=== PATIENT | male | born 1940 | race American Indian/Alaskan Native ===

== ENCOUNTER 2016-07-12 09:56 | Outpatient (CLI) | payer MEDICARE ==
[2016-07-12 10:55] LABS: Blood Urea Nitrogen 11 mg/dL (9-20)
--- NOTE | 2016-07-13 08:33 | Magnetic Resonance Report ---
MR PELVIS WITH AND WITHOUT CONTRAST HISTORY: Prostate cancer TECHNIQUE: Multisequence, multiplanar MRI before and after 12 cc of Multihance. COMPARISON: CT abdomen pelvis with contrast dated 01/02/13. FINDINGS: The prostate gland is borderline to mildly enlarged measuring 5.2 x 4.5 x 4.9 cm. The prostate gland is heterogeneous but no discrete enhancing nodule is demonstrated on the postcontrast images. The prostate gland makes a prominent indentation on the base of the bladder but no obvious bladder invasion. The bladder is within normal limits. There may be minimal trabeculation of the bladder wall. The urethra is unremarkable. The visualized bowel loops in the pelvis are within normal limits. No evidence for pelvic fluid, inflammation or adenopathy. Moderate degenerative changes are noted in the lower lumbar spine. No suspicious bony lesion is appreciated. IMPRESSION: Mildly enlarged and heterogeneous prostate gland without evidence of metastatic disease. Degenerative changes in the lower lumbar spine.
== END 2016-07-12 09:57 | disposition home or self-care (01) ==
LOC: MRI 09:56
PROVIDERS: ATTEND Radiology Radiation Oncology
DX: C61 Malignant neoplasm of prostate (principal); N40.0 Benign prostatic hyperplasia without lower urinary tract symptoms; M47.896 Other spondylosis, lumbar region
CPT/HCPCS: 36415; 72197; 82565; 84520; A9577